=== PATIENT | male | born 2000 | race Native Hawaiian/Other Pacific Islander ===

== ENCOUNTER 2022-07-05 16:56 | Emergency (ER) | payer SELFPAY ==
[2022-07-05 17:18] VITALS: BP 113/67; PULSE 71; RESP 16; TEMP 37; O2SAT 97; BMI 19.1
--- NOTE | 2022-07-05 17:57 | ED_ITS ---
HPI - General Adult General Chief complaint: Extremity Pain/Injury, Upper Stated complaint: Pain in Right wrist Time Seen by Provider: 07/05/22 17:33 Source: patient and senior net architect Mode of arrival: ambulatory Limitations: no limitations History of Present Illness HPI narrative: 21-year-old male presents with a 2 year history of pain in his right wrist near the radial styloid. 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 Pain does kind of come and go but has been more bothersome over the last couple of weeks. Today he reports he is unable to function at work. Pain is worse with movement of the thumb, tight gripping. Pain does not radiate. No numbness or tingling. No other fingers are affected besides the thumb and wrist area. Pain is burning in nature. Has intermittently tried taking Tylenol, last time was 2 days ago, occasionally also uses muscle rubs but not frequently. He has never tried a brace has not been evaluated by physical therapy or by a physician for this. He was advised that he would need to be seen by a doctor for any changes in work duty. Left side is unaffected. No prior history of similar symptoms. He denies any long-term medical problems, no long-term medications. No prior surgeries, no allergies. Socially he is relocated to our area from [place], [place]-speaking, nonsmoker. ROS is notable for no other generalized, musculoskeletal, skin, neurological changes. Related Data Previous Rx's Medication Instructions Recorded naproxen 500 mg tablet 500 mg PO BID PRN tendonii #60 tabs 07/05/22 Allergies Allergy/AdvReac Type Severity Reaction Status Date / Time No Known Drug Allergies Allergy Verified 07/05/22 17:26 Exam Const: Vital Signs, click to edit/add: Vital Signs - 24 hr 07/05/22 17:18 Temperature 98.6 F Pulse Rate [Pulse Oximeter] 71 Respiratory Rate 16 Blood Pressure [Ri ght Upper Arm] 113/67 Pulse Oximetry 97 Oxygen Delivery Me thod Room Air Documenting provider has reviewed patient's vital signs: yes Common normals: no apparent distress General appearance: cooperative, comfortable and well kempt Other: Polite, cooperative, good historian. HENMT: Common normals: normocephalic Head and scalp: normocephalic Eye: Other: Normal visual gaze. Eyes grossly normal. Resp: Common normals: normal respiratory effort Effort & inspection: able to speak in complete sentences Cardio: Other: Normal radial pulses. Normal capillary refill And regular rhythm. Extremity: Other: left wrist with normal range of motion. 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 Had the right wrist which is the wrist in question has tenderness along the extensor tendons of the right thumb. Normal strength to flexion, extension and opposition of the thumb. Fingers 2 through Five are normal with no tenderness. Normal range of motion. Wrist have normal flexion extension and rotation. Point bony tenderness over the radial styloid only. No deformity. No effusion. No redness. Testing for tenosynovitis of the thumb on the right is strongly positive. Neuro: Speech: speech normal Motor exam: strength 5/5 throughout and no movement abnormalities noted Psych: Appearance: well kempt Activity/motor behavior: appropriate eye contact Mood and affect: euthymic mood Insight: insight good Judgement: judgment good Skin: Common normals: no rashes or lesions noted General skin exam: no rashes or lesions noted Course Vital Signs Vital signs: Initial Vital Signs Temperature 98.6 F 07/05/22 17:18 Temperature Source Temporal Artery Scan 07/05/22 17:18 Pulse Rate 71 07/05/22 17:18 Pulse Rhythm 07/05/22 17:18 Pulse Strength 3+ Normal 07/05/22 17:18 Respiratory Rate 16 07/05/22 17:18 Blood Pressure 113/67 07/05/22 17:18 Blood Pressure Mean 82 07/05/22 17:18 Blood Pressure Position Sitting 07/05/22 17:18 Pulse Oximetry 97 07/05/22 17:18 Oxygen Delivery Method 07/05/22 17:18 Vital Signs Temperature 98.6 F 07/05/22 17:18 Pulse Rate 71 07/05/22 17:18 Respiratory Rate 16 07/05/22 17:18 Blood Pressure 113/67 07/05/22 17:18 Pulse Oximetry 97 07/05/22 17:18 Oxygen Delivery Method 07/05/22 17:18 Temperature 98.6 F 07/05/22 17:18 Pulse Rate 71 07/05/22 17:18 Respiratory Rate 16 07/05/22 17:18 Blood Pressure 113/67 07/05/22 17:18 Pulse Oximetry 97 07/05/22 17:18 Oxygen Delivery Method 07/05/22 17:18 Medical Decision Making MDM Narrative Medical decision making narrative: no injury, x-rays not indicated. Clear diagnosis of tenosynovitis. Counseled on management. Placed in a right thumb spica. Work restrictions completed. Naprosyn given in the ED. prescription for naproxen b.i.d. p.r.n. for the next 30 days. Follow up in clinic if not improving in 4 weeks for physical therapy referral. Extensive description of duties form completed and discussed with patient. Okay to use Tylenol, muscle rubs and ice as needed as well. Discharge Plan Discharge Clinical Impression: De Quervain's tenosynovitis, right Patient Disposition: Home, Self-Care Condition: Stable Instructions: De Quervain Disease (ED) Additional Instructions: your pain is caused by a tendinitis. This is a common injury in the hand and wrist. It is from overuse of your thumb typically with tight gripping over a period of time. It is not uncommon for this to flare, coming and going over many years. There are no signs of fracture or injury to the nerves or blood vessels. I recommend that you start taking anti-inflammatory medication and have prescribed some naproxen. Take this twice daily as needed for pain. It would be a good idea to take it before work. The only way for the tendinitis to heal is to rest the thumb. I have prescribed you with a thumb brace for you to wear at work and with any repetitive activities. I have provided you with a work note that will outline intended duties for the next 4 weeks to allow the thumb to heal. 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 If things are not improving in 4 weeks, please follow up in the clinic for additional assessment, physical therapy referral. Typically surgery does not improve your symptoms as much as brace and rest. It is okay also to use Tylenol, muscle rubs and ice as needed. nash dolor es causado por emigdio tendinitis. Esta es emigdio herida com?n en la mano y la mu?eca. Se debe al uso excesivo del pulgar, por lo general con un agarre elias nandini un per?odo de tiempo. No es raro que esto brote, yendo y viniendo nandini muchos a?os. No hay signos de fractura o herida en los nervios o vasos sangu?neos. Te recomiendo que empieces a alejandro antiinflamatorios y te hayan recetado algo de naproxeno. [place] esto dos veces al d?a seg?n sea necesario para el dolor. Ser?a emigdio buena idea tomarlo antes del trabajo. La ?ahsan forma de curar la tendinitis es descansar el pulgar. Le he recetado un aparato ortop?dico para el pulgar para que lo use en el trabajo y en cualquier actividad repetitiva. Le proporcion? emigdio nota de trabajo que describir? los deberes previstos para las pr?ximas 4 semanas para permitir que el pulgar sane. Esperemos que nash children's lunchroom supervisor pueda acomodarlos. Si las cosas no mejoran en 4 semanas, shima un seguimiento en la cl?ahsan para emigdio evaluaci?n adicional, derivaci?n a fisioterapia. Por lo general, la cirug?a no mejora los s?ntomas tanto malcolm el apoyo y el descanso. Tambi?n est? armando usar Tylenol, masajes musculares y hielo seg?n sea necesario. Activity Level: Activity as Tolerated Discharge Diet: Regular Prescriptions: New naproxen 500 mg tablet 500 mg PO BID PRN (Reason: tendonii) Qty: 60 1RF Stand Alone Forms: MyHealth Info Instructions
[2022-07-05] MEDS: NAPROXEN 250 MG TABLET 500 MG PO (18:14)
[2022-07-05 18:37] VITALS: BP 113/67; PULSE 71; RESP 16; TEMP 37
== END 2022-07-05 18:41 | disposition home or self-care (01) ==
LOC: ED 18:42
PROVIDERS: Emergency Provider Family Medicine
DX: M65.4 Radial styloid tenosynovitis [de Quervain] (principal)
CPT/HCPCS: 99282; 99283; A9270